=== PATIENT | female | born 1970 | race Caucasian/White ===

== ENCOUNTER 2018-06-09 14:07 | Observation (INO) | payer OTHER ==
[~2018-06-09] VITALS: Ht 167.6 cm; Wt 81.6 kg
[2018-06-09 14:59] LABS: ABSOLUTE BASOPHIL COUNT 0 /CUMM (0.0-0.2); ABSOLUTE EOSINOPHIL COUNT 0.2 /CUMM (0.0-0.7); ABSOLUTE GRANULOCYTE CT 9.2 /CUMM (1.4-6.5); ABSOLUTE LYMPH COUNT 1.9 /CUMM (1.2-3.4); ABSOLUTE MONOCYTE COUNT 0.5 /CUMM (0.10-0.60); BASOPHIL % 0.2 % (0.0-2.0); EOSINOPHIL % 1.9 % (0-5); GRANULOCYTE % 77.6 % (42.2-75.2); HEMATOCRIT 37.8 % (37-47); MEAN CORPUSCULAR HGB 31.4 PG (27.0-31.0); MEAN CORPUSCULAR VOLUME 92.4 FL (81.0-99.0); MEAN PLATELET VOLUME 7.7 FL (7.4-10.4); PLATELET COUNT 254 /CUMM (130-400); RBC DISTRIBUTION WIDTH 15.1 % (11.5-14.5); RED BLOOD CELL CT 4.09 /CUMM (4.20-5.40); WHITE BLOOD CELL COUNT 11.9 /CUMM (4.8-10.8)
--- NOTE | 2018-06-09 15:18 | ED GENERAL ADULT ---
History of Present Illness General Chief Complaint: ETOH/Drug Related Complaint Stated Complaint: FOR [employer] Source: patient Exam Limitations: no limitations Vital Signs & Intake/Output Vital Signs & Intake/Output Vital Signs Date Time Temp Pulse Resp B/P B/P Pulse O2 O2 Flow FiO2 Mean Ox Delivery Rate 06/10 0827 99.0 76 20 147/92 95 Room Air 06/10 0631 98.5 85 18 130/80 98 Room Air 06/10 0402 98.7 84 18 121/64 06/10 0247 98.7 84 18 121/64 96 Room Air 06/10 0136 98.5 80 18 128/66 06/09 2350 98.5 80 18 128/66 95 Room Air 06/09 2336 98.5 80 18 128/66 06/09 2147 99.1 88 18 109/63 92 06/09 1722 98.2 85 18 114/68 96 06/09 1543 Room Air 06/09 1416 96.0 84 18 105/68 92 Room Air ED Intake and Output 06/10 0000 06/09 1200 Intake Total Output Total Balance Patient 180 lb Weight Weight Estimated Measurement Method Allergies Coded Allergies: No Known Allergies (06/09/18) Reconcile Medications Alprazolam 0.25 MG TABLET 1 TAB PO DAILY NEEDED ANXIETY (Reported) Escitalopram Oxalate 20 MG TABLET 1 TAB PO DAILY DEPRESSION (Reported) Trazodone HCl 50 MG TABLET 1 TAB PO QPM SLEEP (Reported) Triage Note: RECEIVED 47 YO FEMALE WITH FAMILY SENT BY [facility] FOR ETOH DETOX AND CLEARANCE. PT APPEARS INTOXICATED IN TRIAGE. FAMILY STATES SHE DRINKS ABOUT 1/2 TO ONE PINT OF VODKA A DAY. FAMILY DENIES KNOWLEDGE OF DETOX SEIZURES. PT HAS BEEN THROUGH DETOX BEFORE AT [facility]. Triage Nurses Notes Reviewed? yes Onset: Afternoon Duration: hour(s): Timing: unknown Severity Numbers: 6 No Modifying Factors: none HPI: Patient is a 47-year-old female presents to the ED for alcohol detox, driven here by her mother from the [facility] facility. Patient states she drank over a pint of vodka this afternoon and she is here for "help". Past medical and surgical history is unremarkable. She denies using illicit drugs or any current medication use other than Lexapro for anxiety, also denies suicide ideation or thoughts of hurting herself. Patient denies nausea, vomiting, diarrhea, headache, dizziness, or weakness. States she currently wants a cigarette and is unhappy that she cannot have one. (Jae Gutierrez) Past History Travel History Traveled to [place] past 21 day No Medical History Any Pertinent Medical History? none Neurological: NONE EENT: NONE Cardiovascular: NONE Respiratory: NONE Gastrointestinal: NONE Hepatic: NONE Renal: NONE Musculoskeletal: NONE Psychiatric: alcohol dependence, anxiety Endocrine: NONE Blood Disorders: NONE Cancer(s): NONE Surgical History Surgical History: none Psychosocial History What is your primary language Salvadorean Tobacco Use: Current Daily Use Daily Tobacco Use Amount/Type: => 5 Cigarettes daily ETOH Use: heavy use Family History Hx Contributory? No (Jae Gutierrez) Review of Systems Review of Systems Constitutional: Denies: chills, diaphoresis, fever, weakness. EENTM: Denies: blurred vision, double vision, eye pain, ear pain, epistaxis. Respiratory: Denies: cough, hemoptysis, short of breath. Cardiovascular: Denies: chest pain, palpitations. GI: Denies: abdominal pain, constipation, diarrhea, nausea, vomiting. Genitourinary: Denies: dysuria, hematuria, pain. Musculoskeletal: Denies: back pain, muscle pain, muscle stiffness. Neurological/Psychological: Reports: see HPI. (Jae Gutierrez) Physical Exam Physical Exam General Appearance: no apparent distress, awake, sedated, lethargic, mild distress, intoxicated Head: atraumatic, normal appearance Eyes: Bilateral: normal appearance, PERRL, EOMI. Ears, Nose, Throat: normal pharynx, normal ENT inspection, hearing grossly normal Neck: normal inspection, supple, full range of motion Respiratory: quiet respiration, wheezing, rales Cardiovascular: regular rate/rhythm, normal peripheral pulses Gastrointestinal: soft, non-tender Neurologic/Psych: awake, alert, oriented x 3 Core Measures ACS in differential dx? No CVA/TIA Diagnosis: No Sepsis Present: No Sepsis Focused Exam Completed? No (Jae Gutierrez) Progress Differential Diagnoses I considered the following diagnoses in my evaluation of the patient: [EtOH detox, illicit drug use, drug interactions, withdrawal, vitamin deficiency] Plan of Care: Orders Procedure Date/time Status Heart Healthy Diet 06/10 B Active Discharge Patient 06/10 1134 Active Regular Diet 06/[address] in observation 06/09 2052 Active Patient Data 06/09 2052 Active Vital Signs 06/09 2052 Active Code Status 06/09 2052 Active Intake & Output 06/09 1542 Active CIWA 06/09 142 Active URINE DRUG SCREEN FOR ER ONLY 06/09 142 Complete ETHANOL 06/09 142 Complete COMPREHENSIVE METABOLIC PANEL 06/09 1420 Complete CBC WITHOUT DIFFERENTIAL 06/09 1420 Complete Current Medications Sig/Sonia Start time Last Medication Dose Stop Time Status Admin Escitalopram Oxalate 20 MG ONCE ONE 06/10 1145 UNVr (Lexapro) 06/10 1146 Nicotine 21 MG DAILY 06/10 1009 AC 06/10 (Nicoderm) 1011 Nicotine 21 MG DAILY 06/09 1552 AC 06/09 (Nicoderm) 1628 Laboratory Tests 06/09/18 2146: Urine Opiates Screen < 100, Methadone Screen < 40, Barbiturate Screen < 60, Ur Phencyclidine Scrn < 6.00, Amphetamines Screen < 100, U Benzodiazepines Scrn < 85, Urine Cocaine Screen < 50, Urine Cannabis Screen < 5.00 06/09/18 1450: Anion Gap 7, Estimated GFR > 60, BUN/Creatinine Ratio 24.3, Glucose 99, Calcium 9.0, Total Bilirubin 0.2, AST 25, ALT 40, Alkaline Phosphatase 50, Total Protein 6.5, Albumin 3.8, Globulin 2.7, Albumin/Globulin Ratio 1.4, CBC w Diff NO MAN DIFF REQ, RBC 4.09 L, MCV 92.4, MCH 31.4 H, MCHC 34.0, RDW 15.1 H, MPV 7.7, Gran % 77.6 H, Lymphocytes % 16.3 L, Monocytes % 4.0, Eosinophils % 1.9, Basophils % 0.2, Absolute Granulocytes 9.2 H, Absolute Lymphocytes 1.9, Absolute Monocytes 0.5, Absolute Eosinophils 0.2, Absolute Basophils 0, Serum Alcohol 283.0 47-year-old female presents from [facility] for alcohol detox. Was driven to the ED by her mother. Patient states she needs "help", denies taking any drugs but drinks approximately a half to a full pint of vodka daily. All labs were stable blood ethanol level of 283 at 14:50. She has tolerated ice chips by mouth throughout stay with no vomiting or seizure like activity. After demanding to leave multiple times and threatening to walk out and have a cigarette, patient will be held overnight in ED hallway for now. Patient will be signed out to Dr. Wallace at approximately 1:17 AM Initial ED EKG: none (Jae Gutierrez) Differential Diagnoses I considered the following diagnoses in my evaluation of the patient: (Ezra Burroughs DO) Comments: 06/10/2018 7:21:48 AM patient signed out to me by Dr. Burroughs at shift chart changer. Patient signed out to Dr. Burroughs at shift chart changer after an uneventful emergency department stay overnight. (Madison FRANK,Ezra Salazar) Departure Departure Condition: Stable Departure Forms: Customer Survey General Discharge Information (Jae Gutierrez) Departure Disposition: STILL A PATIENT Clinical Impression Primary Impression: Desire for detoxification Secondary Impressions: S/P alcohol detoxification PA/COMPUTER ENGINEER Co-Sign Statement Statement: ED Attending supervision documentation- [X] I saw and evaluated the patient. I have also reviewed all the pertinent lab results and diagnostic results. I agree with the findings and the plan of care as documented in the PA's/COMPUTER ENGINEER's documentation. [] I have reviewed the ED Record and agree with the PA's/COMPUTER ENGINEER's documentation. [] Additions or exceptions (if any) to the PAs/COMPUTER ENGINEER's note and plan are summarized below: [] (Ezra Burroughs DO) Critical Care Note Critical Care Note Critical Care Time: non-applicable (Jae Gutierrez) ED Attending Observation Initial Observation Note: I have seen and personally examined ELIZABETH TENORIO on 06/09/18 at 1643. I agree with the current emergency department documentation. The disposition (admission or discharge) is uncertain at this time, she needs a period of observation for the following reason(s): The ED Nurse caring for this patient has been personally informed as to what the patient is being observed for. (Jae Gutierrez) Initial Observation Note: I have seen and personally examined ELIZABETH TENORIO on 06/09/18 at 1855. I agree with the current emergency department documentation. The disposition (admission or discharge) is uncertain at this time, she needs a period of observation for the following reason(s): The ED Nurse caring for this patient has been personally informed as to what the patient is being observed for. The patient needs to be placed in observation for neurology evaluations every 6 hours, CIWA scores every 2 hours, and to determine if she needs inpatient care or may be discharged to the rehabilitation facility. The patient was signed out to Dr. Wallace at 8 PM Observation Re-Evaluation: I have reevaluated ELIZABETH TENORIO on 06/10/18 at 1135. The physical findings that support the continued need to observe this patient include [patient was observed during the night and she was scores were not significantly elevated]. Observation Discharge: I have reevaluated ELIZABETH TENORIO on 06/10/18 at 1136. The patient is awake alert and oriented 3. No tremors. She is medically clear for admission TO [facility] The patient is: ([X]): Stable for discharge (): To be admitted to Nursing Floor (): To be placed in Observation on Nursing Floor (): For transfer to other facility The patient was being observed for As a result of that observation, I have determined . (Ezra Burroughs DO)
[2018-06-09] MEDS ORDERED: ALPRAZOLAM0.25 M1 PO (21:53)
[2018-06-09] MEDS ORDERED: ESCITALOPRAM OX20 MG PO (21:53)
[2018-06-09] MEDS ORDERED: TRAZODONE HCL50 M1 PO (21:53)
[2018-06-09 23:36] VITALS: BP 128/66
[2018-06-10 01:36] VITALS: BP 128/66
[2018-06-10 04:02] VITALS: BP 121/64
[2018-06-10 08:27] VITALS: BP 147/92
== END 2018-06-10 12:21 | disposition other institution (70) ==
LOC: ERH 14:07 → ERHI 20:52
PROVIDERS: Physician Assistant
DX: F10.20 Alcohol dependence, uncomplicated (principal); F41.9 Anxiety disorder, unspecified; F17.200 Nicotine dependence, unspecified, uncomplicated
CPT/HCPCS: 6090; 80307; G0378; G0480